=== PATIENT | female | born 1990 | race African-American/Black ===

== ENCOUNTER 2021-10-11 18:27 | Inpatient (IN) | payer OTHER ==
[2021-10-11 20:03] VITALS: BMI 25.4
[2021-10-11] MEDS ORDERED: MAGNESIUM CITRATE 300 ML BOTTLE PO PRN (20:25)
[2021-10-11] MEDS ORDERED: LOPERAMIDE HCL 2 MG CAPSULE PO PRN (20:25)
[2021-10-11] MEDS ORDERED: DICYCLOMINE HCL 10 MG CAPSULE PO PRN (20:25)
[2021-10-11] MEDS ORDERED: BISMUTH SUBSALICYLATE 524 MG/30 ML PO PRN (20:25)
[2021-10-11] MEDS ORDERED: ONDANSETRON *ODT* 4 MG TABLET SL PRN (20:25)
[2021-10-11] MEDS ORDERED: MAGNESIUM HYDROX 2400MG/30ML ORAL SUSPENSION 30 ML CUP PO PRN (20:25)
[2021-10-11] MEDS ORDERED: MAG HYDROX/AL HYDROX/SIMETH 30 ML UNIT-DOSE CUP PO PRN (20:25)
[2021-10-11] MEDS ORDERED: P-EPHED 60MG/TRIPROLIDI 2.5MG TABLET PO PRN (20:25)
[2021-10-11] MEDS ORDERED: BENZOCAINE/MENTHOL (CHLORASEPTIC ) LOZENGE MM PRN (20:25)
[2021-10-11] MEDS ORDERED: ACETAMINOPHEN 325 MG TABLET (FP) PO PRN (20:25)
[2021-10-11] MEDS ORDERED: IBUPROFEN 400 MG TABLET (FP) PO PRN (20:25)
[2021-10-11] MEDS ORDERED: methaDONE HCL 10 MG TABLET (FOR DETOX USE ONLY) PO ONE (20:27)
[2021-10-11] MEDS ORDERED: cloNIDine HCL 0.1 MG TABLET PO PRN (20:27)
[2021-10-12] MEDS: THIAMINE HCL 100 MG TABLET (FP) PO SCH ×2 (00:46→23:10)
[2021-10-12] MEDS ORDERED: methaDONE HCL 10 MG TABLET (FOR DETOX USE ONLY) PO ONE ×2 (00:47→10:00)
[2021-10-12] MEDS: METHOCARBAMOL 500 MG TABLET PO PRN ×3 (10:32→23:10)
[2021-10-12] MEDS: PRENATAL VITAMINS W/ FOLIC ACID TABLET (FP) PO SCH (10:32)
[2021-10-12] MEDS: ACETAMINOPHEN 325 MG TABLET (FP) PO PRN (10:36)
[2021-10-12 10:52] LABS: HEMATOCRIT 34.9 % (32.4-45.2); HEMOGLOBIN 11.6 GM/dL (10.7-15.3); MCH 26.5 pg (25.7-33.7); MCHC 33.1 g/dl (32.0-36.0); MEAN CELL VOLUME 79.9 fl (80-96); MEAN PLT VOLUME 8.9 fl (7.5-11.1); PLATELET COUNT 258 10^3/uL (134-434); RBC 4.37 M/mm3 (3.60-5.2); RDW 14.4 % (11.6-15.6); WHITE BLOOD COUNT 7.9 K/mm3 (4.0-10.0)
[2021-10-12 11:42] LABS: CALCIUM 9.3 mg/dL (8.5-10.1)
[2021-10-12 11:43] LABS: ALBUMIN 3.8 g/dl (3.4-5.0); BLOOD UREA NITROGEN 7.7 mg/dL (7-18)
[2021-10-12 11:46] LABS: CREATININE 0.6 mg/dL (0.55-1.3)
[2021-10-12 11:47] LABS: BILIRUBIN,TOTAL 0.6 mg/dL (0.2-1)
[2021-10-12] MEDS: hydrOXYzine PAMOATE 25 MG CAPSULE (FP) PO PRN ×2 (18:15→23:10)
[2021-10-12] MEDS: MELATONIN 5 MG TABLETS PO PRN (23:10)
[2021-10-13] MEDS ORDERED: methaDONE HCL 10 MG TABLET (FOR DETOX USE ONLY) PO ONE ×2 (10:00)
[2021-10-13] MEDS: PRENATAL VITAMINS W/ FOLIC ACID TABLET (FP) PO SCH (10:27)
[2021-10-13] MEDS: MELATONIN 5 MG TABLETS PO PRN (22:07)
[2021-10-13] MEDS: ACETAMINOPHEN 325 MG TABLET (FP) PO PRN (22:08)
[2021-10-13] MEDS: hydrOXYzine PAMOATE 25 MG CAPSULE (FP) PO PRN (22:08)
[2021-10-13] MEDS: THIAMINE HCL 100 MG TABLET (FP) PO SCH (23:15)
[2021-10-14] MEDS ORDERED: methaDONE HCL 10 MG TABLET (FOR DETOX USE ONLY) PO ONE ×2 (10:00)
[2021-10-14] MEDS: PRENATAL VITAMINS W/ FOLIC ACID TABLET (FP) PO SCH (10:35)
[2021-10-14 17:09] LABS: SARS-CoV-2 NAA Not Detected (Not Detected)
[2021-10-14] MEDS: MELATONIN 5 MG TABLETS PO PRN (22:26)
[2021-10-14] MEDS: THIAMINE HCL 100 MG TABLET (FP) PO SCH (22:27)
[2021-10-14] MEDS: hydrOXYzine PAMOATE 25 MG CAPSULE (FP) PO PRN (22:27)
[2021-10-14] MEDS: ACETAMINOPHEN 325 MG TABLET (FP) PO PRN (22:27)
[2021-10-15 08:57] VITALS: BP 128/76; PULSE 64; TEMP 97.2
[2021-10-15] MEDS: PRENATAL VITAMINS W/ FOLIC ACID TABLET (FP) PO SCH (11:10)
== END 2021-10-15 11:30 | disposition home or self-care (01) | DRG 773 ==
LOC: YASAS 18:27 → Y3N 21:45
PROVIDERS: ADMIT Allergy & Immunology; ATTEND Surgery
PROC: HZ2ZZZZ Detoxification Services for Substance Abuse Treatment (ICD-10-PCS; principal; 2021-10-11)
DX: F11.23 Opioid dependence with withdrawal (principal); F12.10 Cannabis abuse, uncomplicated
CPT/HCPCS: 36415; 80053; 81025; 85027; 86780; C9803-CS; U0003; U0005